=== PATIENT | male | born 1995 | race Caucasian/White ===

== ENCOUNTER → 2017-03-07 | Outpatient (CLI) | payer OTHER | LOC: M LRY 16:18 | DX: R05 Cough (principal) ==

== ENCOUNTER → 2018-10-24 | Outpatient (CLI) | payer OTHER ==
[~2018-10-24] MED LIST: E-Z-GAS II EFFERVESCENT PACKET (SODIUM BICARB./CITRIC ACID/SIMETHICONE) As Ordered ONE; E-Z-HD 98% w/w 340GM SUSP BTL As Ordered ONE; E-Z-PAQUE 96% w/w SUSP 176GM BTL As Ordered ONE
--- NOTE | 2018-10-24 16:45 | REP ---
Upper GI Air Contrast with SBFT The procedure was performed by KIERRA Ladd, under the the direct supervision of Dr. Lira. The images were reviewed with Dr. Lira. 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 The intestinal gas pattern appears normal. Liquid barium and gas producing crystals were given in the erect position as well as liquid barium in the prone position in order to perform a double contrast upper GI examination. The oral and pharyngeal stages of deglutition were unremarkable. Esophageal transport is efficient and there is no esophagitis, stricture, or mucosal ring noted. There is no hiatal hernia. Gastroesophageal reflux was not visualized throughout the course of the exam. The stomach barrios are normally outlined. The rugal folds are smooth and regular. There is no gastritis, neoplasm, or ulcer disease noted. The duodenal barrios are normally outlined. The mucosal folds are smooth and regular. There is no duodenitis, peptic ulcer disease, or neoplasm noted. The visualized portion of the proximal small bowel appears normal in course and caliber. The barium column was followed through the small bowel to the level of the terminal ileum. Small bowel transit time was approximately 125 minutes. During fluoroscopy gentle palpation shows all loops are freely mobile and pliable. There are no fixed or angulated loops. The small bowel mucosal pattern is normal in course and caliber. There is no transition to set suggest a partial small-bowel obstruction. Spot filming of the terminal ileum shows it to be unremarkable. Impression: 1. Unremarkable upper GI with small bowel follow-through. 0.8 minutes of fluoroscopy time was utilized for this procedure. Some fluoroscopic images are performed with last image hold technology. These images require no additional radiation. Reviewed by KIERRA Steve 10/24/2018 04:32 P Electronically Signed by Gideon Lira DO 10/24/2018 04:36 P
== END ==
LOC: M RAD 09:39
PROVIDERS: ATTEND Internal Medicine Gastroenterology
DX: R11.2 Nausea with vomiting, unspecified (principal)

== ENCOUNTER → 2019-02-04 | Outpatient (CLI) | payer OTHER ==
--- NOTE | 2019-02-04 10:34 | REP ---
ULTRASOUND ABDOMEN: Real-time sonographic evaluation of the abdomen performed. Gallbladder demonstrates no evidence of intraluminal sludge or calculi, wall thickening or pericholecystic fluid. There is no intrahepatic or extrahepatic biliary dilatation, common bile duct measuring 2 mm. Liver and pancreas demonstrate homogeneous echotexture with no gross mass. Spleen is normal in length at 12.3 cm but the splenic index is 601, which is mildly elevated suggesting mild splenomegaly. No intrinsic abnormality is seen. Kidneys are normal size and echotexture, right kidney measuring 11.1 x 5.0 x 4.2 cm and left kidney 11.8 x 4.7 x 5.3 cm. There is no renal mass or hydronephrosis. Abdominal aorta is normal in caliber with no aneurysm, proximally measuring 2.0 cm and distally 1.8 cm in maximum AP dimension. There is no ascites. IMPRESSION: Essentially unremarkable abdominal ultrasound. Electronically Signed by Christiano Parisi MD 02/04/2019 12:23 P
== END ==
LOC: M RAD 08:23
PROVIDERS: ATTEND Internal Medicine Gastroenterology
DX: R11.2 Nausea with vomiting, unspecified (principal)

== ENCOUNTER 2019-04-13 07:04 | Day surgery (SDC) | payer OTHER ==
[~2019-04-13] VITALS: Ht 185.4 cm; Wt 71.7 kg
[~2019-04-13 07:04] MED LIST changes: -E-Z-GAS II EFFERVESCENT PACKET (SODIUM BICARB./CITRIC ACID/SIMETHICONE) As Ordered ONE; -E-Z-HD 98% w/w 340GM SUSP BTL As Ordered ONE; -E-Z-PAQUE 96% w/w SUSP 176GM BTL As Ordered ONE; +NS 1,000 ML IV ONE; +PANT40TA3 PO
[2019-04-13] MEDS ORDERED: propofoL 200 MG/20 ML VIAL As Ordered ONE ×3 (07:16→08:21)
[2019-04-13] MEDS ORDERED: LIDOCAINE 2% INJ 100 MG/5 ML SDV (FOR ANES.) As Ordered ONE (07:16)
--- NOTE | 2019-04-13 08:41 | ROOR ---
Patient Name: Erasmo Vu Procedure Date: 04/13/2019 8:07 AM Date of : 1995 Age: 23 Room: [facility] Gender: Male Note Status: Finalized Procedure: Upper GI endoscopy Indications: Persistent vomiting of unknown cause Providers: Yahir Gastelum MD Referring MD: HILLARY THORNTON MD Requesting Provider: Medicines: Monitored Anesthesia Care Complications: No immediate complications. Procedure: Pre-Anesthesia Assessment: - Prior to the procedure, a History and Physical was performed, and patient medications and allergies were reviewed. The patient is competent. The risks and benefits of the procedure and the sedation options and risks were discussed with the patient. All questions were answered and informed consent was obtained. Patient identification and proposed procedure were verified by the physician, the nurse and the anesthesiologist in the procedure room. Mental Status Examination: alert and oriented. Airway Examination: normal oropharyngeal airway and neck mobility. Respiratory Examination: clear to auscultation. CV Examination: normal. Prophylactic Antibiotics: The patient does not require prophylactic antibiotics. Prior Anticoagulants: The patient has taken no previous anticoagulant or antiplatelet agents. ASA Grade Assessment: I - A normal, healthy patient. After reviewing the risks and benefits, the patient was deemed in satisfactory condition to undergo the procedure. The anesthesia plan was to use monitored anesthesia care (MAC). Immediately prior to administration of medications, the patient was re-assessed for adequacy to receive sedatives. The heart rate, respiratory rate, oxygen saturations, blood pressure, adequacy of pulmonary ventilation, and response to care were monitored throughout the procedure. The physical status of the patient was re-assessed after the procedure. The Endoscope was introduced through the mouth, and advanced to the second part of duodenum. The upper GI endoscopy was accomplished without difficulty. The patient tolerated the procedure well. Findings: LA Grade A (one or more mucosal breaks less than 5 mm, not extending between tops of 2 mucosal folds) esophagitis with no bleeding was found in the distal esophagus. Biopsies were taken with a cold forceps for histology. Verification of patient identification for the specimen was done by the physician and nurse using the patient's name, date and medical record number. Estimated blood loss was minimal. Scattered minimal inflammation characterized by erythema and granularity was found in the gastric antrum. Biopsies were taken with a cold forceps for Helicobacter pylori testing. Normal mucosa was found in the duodenal bulb and in the second portion of the duodenum. Biopsies for histology were taken with a cold forceps for evaluation of celiac disease. A moderate extrinsic deformity was found in the second portion of the duodenum. Impression: - LA Grade A reflux esophagitis. Rule out Baker's esophagus. Biopsied. - Gastritis. Biopsied. - Normal mucosa was found in the duodenal bulb and in the second portion of the duodenum. Biopsied. - Duodenal deformity. Recommendation: - Patient has a contact number available for emergencies. The signs and symptoms of potential delayed complications were discussed with the patient. Return to normal activities tomorrow. Written discharge instructions were provided to the patient. - Resume previous diet. - Continue present medications. - Follow an antireflux regimen. - Await pathology results. - Telephone GI clinic for pathology results in 2 weeks. - Return to primary care physician. Yahir Gastelum MD Yahir Gastelum MD 04/13/2019 8:40:51 AM Electronically signed by Yahir Gastelum MD Number of Addenda: 0 Note Initiated On: 04/13/2019 8:07 AM Estimated Blood Loss: Estimated blood loss was minimal.
[2019-04-13 08:54] VITALS: BP 137/99
== END 2019-04-13 08:56 | disposition home or self-care (01) ==
LOC: M OPP 07:04
PROVIDERS: ATTEND Internal Medicine Gastroenterology
DX: K21.0 Gastro-esophageal reflux disease with esophagitis (principal); K29.70 Gastritis, unspecified, without bleeding; K31.89 Other diseases of stomach and duodenum; R11.10 Vomiting, unspecified; Z80.0 Family history of malignant neoplasm of digestive organs